=== PATIENT | female | born 1995 | race African-American/Black ===

== ENCOUNTER 2018-11-08 13:29 | Emergency (ER) | payer SELFPAY ==
[2018-11-08] MEDS ORDERED: KETAMINE HCL 500 MG/5 ML VIAL ONE (13:48)
[2018-11-08] MEDS ORDERED: FENTANYL CITR 100 MCG/2 ML ONE ×2 (13:49→15:36)
[2018-11-08] MEDS ORDERED: ONDANSETRON 4 MG/2 ML VIAL ONE ×2 (13:49→16:19)
--- NOTE | 2018-11-08 14:29 | RAD REPORT ---
EXAM DESCRIPTION: RAD - Ankle Right 2 View - 11/08/2018 1:43 pm CLINICAL HISTORY: Slip and fall, right ankle pain COMPARISON: None. FINDINGS: AP and lateral views of the ankle were obtained. There is a transverse fracture through th e medial malleolus. An oblique fracture is present through the distal fibula. There is lateral displa cement of the dome of the talus approximately 8 mm. A small posterior malleolus fracture is present w ithout significant displacement. Soft tissue swelling surrounds the right ankle joint. IMPRESSION: Trimalleolar ankle fracture with lateral displacement of the talus.
--- NOTE | 2018-11-08 16:20 | EDPHYS ---
Physician Documentation [facility] Name: Silvia Watson Age: 23 yrs Sex: Female : 1995 Arrival Date: 11/08/2018 Time: 13:30 Bed 20 Private MD: ED Physician Fly Lunsford HPI: 11/08 15:50 This 23 yrs old Black Female presents to ER via EMS with complaints of Leg Injury. jr8 16:06 The patient presents with decreased range of motion, a deformity, pain. The complaints jr8 affect the right ankle. Context: The problem was sustained at work, resulted from the patient falling, the patient is not able to bear weight, the patient is not able to ambulate, Problem is a result from a previous injury: No. Onset: The symptoms/episode began/occurred acutely, today. Modifying factors: The symptoms are alleviated by nothing. the symptoms are aggravated by movement. Associated signs and symptoms: The patient has no apparent associated signs or symptoms. Severity of symptoms: At their worst the symptoms were moderate, in the emergency department the symptoms are unchanged. The patient has not experienced similar symptoms in the past. The patient has not recently seen a physician. Patient slipped while at work landing on right ankle. Obvious deformity to ankle. Pain since incident. Patient premedicated by EMS before arrival and was splinted in position of comfort. Historical: - Allergies: 13:43 PENICILLINS; em - Home Meds: 13:43 None [Active]; em - PMHx: 13:43 None; em - PSHx: 13:43 None; em - Immunization history:: Adult Immunizations up to date. - Social history:: Smoking status: unknown. - Ebola Screening: : Patient negative for fever greater than or equal to 101.5 degrees Fahrenheit, and additional compatible Ebola Virus Disease symptoms Patient denies exposure to infectious person Patient denies travel to an Ebola-affected area in the 21 days before illness onset No symptoms or risks identified at this time. ROS: 16:06 Eyes: Negative for injury, pain, redness, and discharge, ENT: Negative for injury, jr8 pain, and discharge, Neck: Negative for injury, pain, and swelling, Cardiovascular: Negative for chest pain, palpitations, and edema, Respiratory: Negative for shortness of breath, cough, wheezing, and pleuritic chest pain, Abdomen/GI: Negative for abdominal pain, nausea, vomiting, diarrhea, and constipation, Back: Negative for injury and pain, Skin: Negative for injury, rash, and discoloration, Neuro: Negative for headache, weakness, numbness, tingling, and seizure. 16:06 MS/extremity: Positive for injury or acute deformity, decreased range of motion, pain, swelling, tenderness, of the right ankle. Exam: 16:06 Eyes: Pupils equal round and reactive to light, extra-ocular motions intact. Lids and jr8 lashes normal. Conjunctiva and sclera are non-icteric and not injected. Cornea within normal limits. Periorbital areas with no swelling, redness, or edema. ENT: Nares patent. No nasal discharge, no septal abnormalities noted. Tympanic membranes are normal and external auditory canals are clear. Oropharynx with no redness, swelling, or masses, exudates, or evidence of obstruction, uvula midline. Mucous membranes moist. Neck: Trachea midline, no thyromegaly or masses palpated, and no cervical lymphadenopathy. Supple, full range of motion without nuchal rigidity, or vertebral point tenderness. No Meningismus. Cardiovascular: Regular rate and rhythm with a normal S1 and S2. No gallops, murmurs, or rubs. Normal PMI, no JVD. No pulse deficits. Respiratory: Lungs have equal breath sounds bilaterally, clear to auscultation and percussion. No rales, rhonchi or wheezes noted. No increased work of breathing, no retractions or nasal flaring. Abdomen/GI: Soft, non-tender, with normal bowel sounds. No distension or tympany. No guarding or rebound. No evidence of tenderness throughout. Back: No spinal tenderness. No costovertebral tenderness. Full range of motion. Skin: Warm, dry with normal turgor. Normal color with no rashes, no lesions, and no evidence of cellulitis. Neuro: Awake and alert, GCS 15, oriented to person, place, time, and situation. Cranial nerves II-XII grossly intact. Motor strength 5/5 in all extremities. Sensory grossly intact. Cerebellar exam normal. Normal gait. 16:06 Musculoskeletal/extremity: Extremities: grossly normal except: noted in the right ankle: decreased ROM, deformity, pain, swelling, tenderness, ROM: limited active range of motion, limited passive range of motion, limited active range of motion due to pain, limited passive range of motion due to pain, Pulses: noted to be 2+ in the right dorsalis pedis artery and left dorsalis pedis artery, Sensation intact. Vital Signs: 13:43 BP 144 / 95; Pulse 106; Resp 24; Temp 98.1(O); Pulse Ox 100% on R/A; Weight 77.11 kg em (R); Pain 10/10; 14:15 BP 113 / 66; Pulse 62; Resp 16; Temp 98.0; Pulse Ox 100% on R/A; Pain 5/10; dh3 15:15 BP 110 / 71; Pulse 75; Resp 18; Pulse Ox 100% on R/A; em 15:15 BP 114 / 69; Pulse 77; Resp 18; Temp 98.6(TE); Pulse Ox 98% on R/A; ss 15:30 BP 141 / 82; Pulse 128; Resp 14; Pulse Ox 100% on 2 lpm NC; ss 15:40 BP 136 / 80; Pulse 117; Resp 16; Pulse Ox 100% on R/A; ss 15:50 BP 148 / 88; Pulse 97; Resp 16; Pulse Ox 99% on R/A; ss Procedures: 16:06 Reduction: of the right ankle, using traction, manipulation, Immobilized with OCL jr8 splint, Patient tolerated well. Post reduction film - reveals improved alignment. Moderate sedation: Pre-procedure assessment: the patient has been NPO 4 hour(s) prior to arrival, ASA physical classification: I - healthy, no underlying organic disease, Airway assessment: able to hyperextend neck, able to maintain airway, can open mouth without difficulty, Mallampati classification of tongue size: II - faucial pillars and soft palate can be visualized, but uvula is masked by the base of the tongue, Monitoring during procedure: monitor car operator, continuous pulse oximetry, nurse at bedside at all times, Medications employed: Ketamine, 77 mg(s), Post-procedure assessment: the patient is moderately sedated, Murphy sedation score: 4 - brisk response to a light glabellar tap, Respiratory status: even and unlabored, a reversal agent was not used. 16:06 Splinting: Splint applied to right ankle using Orthoglass splint, applied by myself. jr8 tech. post reduction film - reveals improved alignment, Examined by me, post splint application: neurovascular intact, 2+ distal pulses palpable, brisk capillary refill noted, Patient tolerated well. MDM: 13:30 Patient medically screened. jr8 16:15 Data reviewed: vital signs, nurses notes, radiologic studies, plain films. Data jr8 interpreted: Pulse oximetry: on room air is 100 %. Interpretation: normal. Counseling: I had a detailed discussion with the patient and/or guardian regarding: the historical points, exam findings, and any diagnostic results supporting the discharge/admit diagnosis, radiology results, the need for outpatient follow up, a orthopedic surgeon, to return to the emergency department if symptoms worsen or persist or if there are any questions or concerns that arise at home. ED course: Dr. Becerra consulted on case. Recommended light manipulation of ankle to reduce and to put in padded splint. Will see patient in office on this upcoming Sunday after the . 11/08 13:33 Order name: XRAY Ankle RIGHT 2 view; Complete Time: 16:06 [facility] 11/08 16:07 Order name: XRAY Ankle RIGHT 2 view; Complete Time: 06:06 [facility] 11/08 13:33 Order name: IV; Complete Time: 13:52 [facility] 11/08 13:33 Order name: Cardiac monitoring; Complete Time: 13:52 [facility] 11/08 13:33 Order name: Oxygen Per Protocol; Complete Time: 13:52 [facility] 11/08 16:19 Order name: Conscious Sedation; Complete Time: 16:18 ss Administered Medications: 13:40 Drug: Zofran 4 mg Route: IVP; Site: right antecubital; ss 13:42 Drug: fentaNYL (PF) 75 mcg Route: IVP; Site: right antecubital; ss 13:48 Drug: Ketamine 16 mg Route: IVP; Site: right antecubital; ss 15:24 Drug: fentaNYL (PF) 50 mcg Route: IVP; Site: right antecubital; ss 16:28 Follow up: Response: No adverse reaction; Pain is decreased ss 15:25 Drug: Ketamine 32 mg Route: IVP; Site: right antecubital; ss 16:27 Follow up: Response: No adverse reaction; No change in condition ss 15:31 Drug: Ketamine 1 mg/kg Route: IVP; Site: right antecubital; ss 16:27 Follow up: Response: No adverse reaction; Patient is sedated ss 16:08 Drug: Zofran 4 mg Route: IVP; Site: right antecubital; ss 16:27 Follow up: Response: Nausea unchanged ss 16:28 Drug: Phenergan 6.25 mg Route: IVP; Site: right antecubital; ss Disposition: 11/08/18 16:19 Discharged to Home. Impression: Trimalleolar fracture of lower leg. - Condition is Stable. - Discharge Instructions: Ankle Fracture. - Prescriptions for Ibuprofen 800 mg Oral Tablet - take 1 tablet by ORAL route every 12 hours As needed take with food; 20 tablet. Tylenol- Codeine #3 300-30 mg Oral Tablet - take 2 tablets by ORAL route every 6 hours As needed; 20 tablet. - Medication Reconciliation Form, Thank You Letter, Antibiotic Education, Prescription Opioid Use form. - Follow up: Asim Becerra MD; When: 11/12/2018; Reason: Continuance of care, Re-evaluation by your physician. - Problem is new. - Symptoms have improved. Addendum: 11/12/2018 08:22 Co-signature as Attending Physician, Fly Lunsford MD I agree with the assessment and c ramirez plan of care. Signatures: Dispatcher [employer] EDPA Fly Lunsford MD MD cha Munoz, Edgar, WOOD GRAINER WOOD GRAINER Zina Osorio RN RN ss Roszak, Josh, PA PA jr8 Corrections: (The following items were deleted from the chart) 11/08 16:50 16:19 11/08/2018 16:19 Discharged to Home. Impression: Trimalleolar fracture of lower ss leg. Condition is Stable. Forms are Medication Reconciliation Form, Thank You Letter, Antibiotic Education, Prescription Opioid Use. Follow up: Asim Becerra; When: 11/12/2018; Reason: Continuance of care, Re-evaluation by your physician. Problem is new. Symptoms have improved. jr8
--- NOTE | 2018-11-08 16:20 | ER ---
Nurse's Notes [facility] Name: Silvia Watson Age: 23 yrs Sex: Female : 1995 Arrival Date: 11/08/2018 Time: 13:30 Bed 20 Private MD: Diagnosis: Trimalleolar fracture of lower leg Presentation: 11/08 13:35 Presenting complaint: EMS states: was at work and slipped on wet spot, complains of em right ankle pain, swelling noted, was given 100 mcg Fentanyl [employer] via IV, 20 RAC. 13:35 Method Of Arrival: EMS: [facility] em 13:35 Transition of care: patient was not received from another setting of care. Onset of em symptoms was November 08, 2018. Risk Assessment: Do you want to hurt yourself or someone else? Patient reports no desire to harm self or others. Initial Sepsis Screen: Does the patient meet any 2 criteria? No. Patient's initial sepsis screen is negative. Does the patient have a suspected source of infection? No. Patient's initial sepsis screen is negative. Care prior to arrival: None. 13:35 Acuity: STEPH 2 ss Triage Assessment: 13:43 General: Appears in no apparent distress. uncomfortable, Behavior is calm, cooperative. em Pain: Complains of pain in right ankle. Musculoskeletal: Range of motion: limited in right ankle Swelling present in right ankle. Injury Description: slip injury. Historical: - Allergies: 13:43 PENICILLINS; em - Home Meds: 13:43 None [Active]; em - PMHx: 13:43 None; em - PSHx: 13:43 None; em - Immunization history:: Adult Immunizations up to date. - Social history:: Smoking status: unknown. - Ebola Screening: : Patient negative for fever greater than or equal to 101.5 degrees Fahrenheit, and additional compatible Ebola Virus Disease symptoms Patient denies exposure to infectious person Patient denies travel to an Ebola-affected area in the 21 days before illness onset No symptoms or risks identified at this time. Screenin:46 Abuse screen: Denies threats or abuse. Nutritional screening: No deficits noted. em Tuberculosis screening: No symptoms or risk factors identified. Fall Risk None identified. Assessment: 13:30 General: Appears distressed, uncomfortable, Behavior is cooperative, anxious, fussy, ss restless. Pain: Complains of pain in right ankle and anterior aspect of right ankle Pain currently is 10 out of 10 on a pain scale. Quality of pain is described as aching, tender, throbbing, Pain began suddenly, Is continuous, Aggravated by repositioning. Neuro: Level of Consciousness is awake, alert, obeys commands, Oriented to person, place, time, situation. Cardiovascular: Pulses are palpable in right posterior tibial artery and left posterior tibial artery. Respiratory: Airway is patent Respiratory effort is even, unlabored, Respiratory pattern is regular, symmetrical. EENT: Nares are clear Oral mucosa is moist. Derm: Skin is intact, is healthy with good turgor, Skin is dry, Skin is pink, warm \T\ dry. normal. Musculoskeletal: Range of motion: limited in right ankle Swelling present in right ankle. 14:28 Reassessment: Patient appears in no apparent distress at this time. Patient and/or em family updated on plan of care and expected duration. Pain level reassessed. Patient is alert, oriented x 3, equal unlabored respirations, skin warm/dry/pink. rates pain 5/10 Patient states feeling better. 15:15 Reassessment: Patient appears in no apparent distress at this time. Patient and/or em family updated on plan of care and expected duration. Pain level reassessed. Patient is alert, oriented x 3, equal unlabored respirations, skin warm/dry/pink. Patient states feeling better. 16:21 Reassessment: Pt reports nausea at this time even after administration of Zofran KRISTIN Light notified. Phenergan ordered. General: Behavior is anxious, tearful. Neuro: Level of Consciousness is awake, alert. Respiratory: Airway is patent Respiratory effort is even, unlabored, Respiratory pattern is regular, symmetrical. 16:50 Reassessment: Patient appears in no apparent distress at this time. Patient and/or ss family updated on plan of care and expected duration. Pain level reassessed. Patient is alert, oriented x 3, equal unlabored respirations, skin warm/dry/pink. Patient states feeling better. Patient states symptoms have improved. Vital Signs: 13:43 BP 144 / 95; Pulse 106; Resp 24; Temp 98.1(O); Pulse Ox 100% on R/A; Weight 77.11 kg em (R); Pain 10/10; 14:15 BP 113 / 66; Pulse 62; Resp 16; Temp 98.0; Pulse Ox 100% on R/A; Pain 5/10; dh3 15:15 BP 110 / 71; Pulse 75; Resp 18; Pulse Ox 100% on R/A; em 15:15 BP 114 / 69; Pulse 77; Resp 18; Temp 98.6(TE); Pulse Ox 98% on R/A; ss 15:30 BP 141 / 82; Pulse 128; Resp 14; Pulse Ox 100% on 2 lpm NC; ss 15:40 BP 136 / 80; Pulse 117; Resp 16; Pulse Ox 100% on R/A; ss 15:50 BP 148 / 88; Pulse 97; Resp 16; Pulse Ox 99% on R/A; ss ED Course: 13:30 Patient arrived in ED. em 13:30 Frank Taylor PA is PHCP. jr8 13:30 Fly Lunsford MD is Attending Physician. jr8 13:31 Tod Gomes LVN is Primary Nurse. em 13:44 X-ray completed. Portable x-ray completed in exam room. Patient tolerated procedure mh1 poorly. 13:44 XRAY Ankle RIGHT 2 view In Process Unspecified. EDMS 13:45 Arm band placed on. em 13:46 Patient has correct armband on for positive identification. Bed in low position. Call em light in reach. Side rails up X 1. thread milling machine set up operator on. Pulse ox on. NIBP on. 13:46 Maintain EMS IV. Dressing intact. Good blood return noted. Site clean \T\ dry. Gauge \T\ em site: 20 RAC. 13:48 Triage completed. ss 16:17 Asim Becerra MD is Referral Physician. jr8 16:25 XRAY Ankle RIGHT 2 view In Process Unspecified. EDMS 16:49 No provider procedures requiring assistance completed. IV discontinued, intact, ss bleeding controlled, No redness/swelling at site. Pressure dressing applied. Administered Medications: 13:40 Drug: Zofran 4 mg Route: IVP; Site: right antecubital; ss 13:42 Drug: fentaNYL (PF) 75 mcg Route: IVP; Site: right antecubital; ss 13:48 Drug: Ketamine 16 mg Route: IVP; Site: right antecubital; ss 15:24 Drug: fentaNYL (PF) 50 mcg Route: IVP; Site: right antecubital; ss 16:28 Follow up: Response: No adverse reaction; Pain is decreased ss 15:25 Drug: Ketamine 32 mg Route: IVP; Site: right antecubital; ss 16:27 Follow up: Response: No adverse reaction; No change in condition ss 15:31 Drug: Ketamine 1 mg/kg Route: IVP; Site: right antecubital; ss 16:27 Follow up: Response: No adverse reaction; Patient is sedated ss 16:08 Drug: Zofran 4 mg Route: IVP; Site: right antecubital; ss 16:27 Follow up: Response: Nausea unchanged ss 16:28 Drug: Phenergan 6.25 mg Route: IVP; Site: right antecubital; Outcome: 16:19 Discharge ordered by . jr8 16:49 Discharged to home via wheelchair, with crutches, with significant other. ss 16:49 Condition: good 16:49 Discharge instructions given to patient, significant other, Instructed on discharge instructions, follow up and referral plans. medication usage, crutch walking, Demonstrated understanding of instructions, follow-up care, medications, Prescriptions given X 2. 16:50 Patient left the ED. ss Signatures: Dispatcher [employer] EDCharla Ruiz 1 Tod Gomes, HIGH SCHOOL COMBINATION TEACHER H[employer]CHO[employer] COMBINATION TEACHER Zina Osorio RN RN Frank Taylor PA PA jr8 Isha Youngblood 3 Corrections: (The following items were deleted from the chart) 16:27 15:40 BP 141 / 82; Pulse 117bpm; Resp 16bpm; Pulse Ox 100% RA; ss ss
--- NOTE | 2018-11-08 16:34 | RAD REPORT ---
EXAM DESCRIPTION: RAD - Ankle Right 2 View - 11/08/2018 4:24 pm CLINICAL HISTORY: post reduction;Pain Fracture COMPARISON: Ankle Right 2 View dated 11/08/2018 FINDINGS: Previously noted right ankle fracture has been reduced and placed within a splint. Soft ti ssue swelling is prominent. Bone detail is obscured.
[2018-11-08] MEDS ORDERED: PROMETHAZINE 25 MG/ML VIAL ONE (16:38)
== END 2018-11-08 16:50 | disposition home or self-care (01) ==
LOC: ER 13:29
PROC: 0QSGXZZ Reposition Right Tibia, External Approach (ICD-10-PCS; principal; 2018-11-08)
DX: S82.851A Displaced trimalleolar fracture of right lower leg, initial encounter for closed fracture (principal); W01.0XXA Fall on same level from slipping, tripping and stumbling without subsequent striking against object, initial encounter; Y93.9 Activity, unspecified; Y92.89 Other specified places as the place of occurrence of the external cause; Y99.8 Other external cause status; Z88.0 Allergy status to penicillin
CPT/HCPCS: 96374; 96375; 99284; J2405; J2550; J3010